=== PATIENT | male | born 2000 | race Caucasian/White ===

== ENCOUNTER 2024-10-30 21:16 | Emergency (ER) | payer SELFPAY ==
[~2024-10-30] VITALS: Ht 162.6 cm; Wt 80.0 kg
[2024-10-30 21:39] VITALS: TEMP 36.6; O2SAT 96
[2024-10-30] MEDS: BACITRACIN ZINC OINT UDPKT TOP ONE (23:00)
[2024-10-30] MEDS: LIDOCAINE HCL/PF 1% 10 MG/ML 5ML VIAL INFIL ONE (23:00)
[2024-10-30] MEDS: KETOROLAC 30MG/ML VIAL IM ONE (23:26)
[2024-10-30] MEDS: TETANUS, DIPHTHERIA, PERTUSSIS VAC/PF 0.5ML (>10YR OLD) IM ONE (23:28)
[2024-10-31] MEDS ORDERED: BO1 TP (03:21)
[2024-10-31] MEDS ORDERED: IBUP-2029 MT (03:22)
[2024-10-31 03:38] VITALS: BP 117/76; PULSE 67; RESP 16; O2SAT 100
== END 2024-10-31 03:49 | disposition home or self-care (01) ==
LOC: ER 21:16
DX: S01.511A Laceration without foreign body of lip, initial encounter (principal); X58.XXXA Exposure to other specified factors, initial encounter; Y93.89 Activity, other specified; Y92.89 Other specified places as the place of occurrence of the external cause; Y99.8 Other external cause status
CPT/HCPCS: 90715; 90471; 96372; 99284; J1885; J2003; Z7610